=== PATIENT | male | born 1970 | race Caucasian/White ===

== ENCOUNTER → 2016-07-17 | Outpatient (CLI) | payer OTHER ==
[~2016-07-17] MED LIST: FLUO40CA8 PO; HYDR-5688 PO; LMC25 PO
[2016-07-17 12:17] LABS: BASO % 0.4 %; BASO ABS # 0.03 K/uL (0-0.2); COMPLETE YES; EOS % 4.3 %; HEMATOCRIT 43.6 % (42-52); IG% 0.1 %; LYMPH % 29.7 %; LYMPH ABS # 2.12 K/uL (1.2-3.4); MEAN CELL VOLUME 90.1 fL (80-100); MEAN CORPUSCULAR HEMOGLOBIN 30.8 pg (25-34); MEAN CORPUSCULAR HGB CONC 34.2 g/dl (32-36); MEAN PLATELET VOLUME 10.2 fL (7.4-10.4); MONO % 10.9 %; NEUT % 54.6 %; PLATELET COUNT 299 K/uL (130-400); RED BLOOD COUNT 4.84 M/uL (4.7-6.1); WHITE BLOOD COUNT 7.15 K/uL (4.8-10.8)
[2016-07-17 12:37] LABS: CALCIUM 9.2 mg/dl (8.5-10.1)
[2016-07-17 12:39] LABS: BLOOD UREA NITROGEN 11 mg/dl (7-18); BUN/CREATININE RATIO 10.4 (10-20); CARBON DIOXIDE 28 mmol/L (21-32); CHLORIDE 103 mmol/L (98-107); GLUCOSE 92 mg/dl (70-99); POTASSIUM 4.2 mmol/L (3.5-5.1); SODIUM 137 mmol/L (136-145)
== END | disposition home or self-care (01) ==
LOC: C.CPL 10:44
PROVIDERS: ATTEND Orthopaedic Surgery
DX: G56.03 Carpal tunnel syndrome, bilateral upper limbs (principal)

== ENCOUNTER → 2016-08-22 | Day surgery (SDC) | payer OTHER ==
[2016-08-12 08:54] VITALS: Ht 177.8 cm; Wt 120.5 kg
[~2016-08-22] VITALS: Ht 177.8 cm; Wt 120.5 kg
[~2016-08-22] MED LIST changes: +ATROPINE SULFATE 0.1 MG/ML 5ML SYR IV PRN; +CEFAZOLIN 3000 MG/65 ML D5W IV SCH; +EpHEDrine SULFATE INJ 50 MG/ML AMP IV PRN; +FENTANYL CITRATE INJ 50 MCG/1 ML 2 ML VIAL ONE; +HYDROCODONE/ACETAMOPHEN 5/325MG TAB PO PRN; +LACTATED RINGER'S 1000ML 1,000 ML IV SCH; +LIDOCAINE HCL 2% 2 ML VIAL (20MG/ML) ONE; +LIDOCAINE HCL 2% LOCAL 20 ML VIAL ONE; +MIDAZOLAM HCL 1 MG/ML 2ML VIAL ONE; +ONDANSETRON INJ 2 MG/ML 2 ML VIAL IV PRN; +ONDANSETRON INJ 2 MG/ML 2 ML VIAL ONE; +PROPOFOL IV EMULSION 10 MG/ML 20 ML VIAL IV ONE; +SODIUM CHLORIDE 0.9% 1000ML 1,000 ML IV SCH
--- NOTE | 2016-08-22 10:58 | History & Physical Bridge - [place] ---
H&P Re-Evaluation Bridge Note: I have examined the patient, reviewed the History & Physical and in the interval since the performance of the History & Physical I have noted the following changes of clinical significance: No changes noted
[2016-08-22 12:44] VITALS: TEMP 36.4
--- NOTE | 2016-08-22 12:49 | Discharge Instructions-SurgCtr ---
Discharge Instructions Date of Service Aug 22, 2016. Visit Reason for Visit: Left Carpal Tunnel Syndrome Discharge Discharge Diagnosis / Problem: SAME ABOVE Discharge Goals Goal(s): Decrease discomfort, Improve function Activity Recommendations Activity Limitations: as noted below Lifting Limitations: gradually increase as tolerated Exercise/Sports Limitations: gradually increase as tolerated Anesthesia . Post Anesthesia Instructions: If you have had General Anesthesia or IV Sedation: * Do not drive today. * Resume driving when surgeon permits. * Do not make important decisions or sign legal documents today. * Call surgeon for: 1. Temperature elevations greater than 101 degrees F. 2. Uncontrollable pain. 3. Excessive bleeding. 4. Persistent nausea and vomiting. 5. Medication intolerance (nausea, vomiting or rash). * For nausea and vomiting use only clear liquids such as: tea, soda, bouillon until nausea subsides, then gradually increase diet as tolerated. * If you have any concerns or questions, call your surgeon's office. If physician is unavailable and it is an emergency, call 911 or go to the nearest emergency room. . Instructions / Follow-Up Instructions / Follow-Up MEDICATIONS: * Resume previous medications unless instructed otherwise by your surgeon. * Always take pain medication on a full stomach or with food to avoid upset stomach. * Do not drink alcohol or drive while taking narcotics. * Ibuprofen or Tylenol may be taken if narcotic not needed. SPECIAL CARE INSTRUCTIONS: __ None _X_ Keep extremity elevated and iced x 48 hours; apply ice 20-30 minutes 8-10 times/day. May remove at night. __ Sling __24 hrs/day __ Remove at night __ Shoulder Immobilizer __ 24 hrs/day __ Remove at night _X_ Dressing __ Maintain until seen in office, may shower with plastic over site _X_ Remove dressings in 5 DAYS. MAY SHOWER SOONER IF COVERED WITH PLASTIC BAG. _X_ Cover incisions with band-aids after showering __ Do not remove steri-strips Call physician if chills or temperature rises above 102 degrees or pain unrelieved by prescribed pain medications at . . Diet Recommendations Home Diet: no limitations Fluid Restriction: None Procedures Procedures Performed: Left Carpal Tunnel Release Pending Studies Studies pending at discharge: no Work Instructions Return To Work: after follow-up Lifting Limitations: no more than 10 pounds Medical Emergencies . Who to Call and When: Medical Emergencies: If at any time you feel your situation is an emergency, please call 911 immediately. . Non-Emergent Contact Non-Emergency issues call your: Primary Care Provider Call Non-Emergent contact if: you have a fever, temperature is above 101.5 . . "Provider Documentation" section prepared by Gael Soto. .
[2016-08-22 13:06] VITALS: BP 107/70; PULSE 53; O2SAT 96
--- NOTE | 2016-08-22 13:14 | Anesthesia Progress Nt - [facility] ---
Anesthesia Post Op Note Date & Time Aug 22, 2016 at 13:14 Vital Signs Pain Intensity: 0 Vital Signs Past 12 Hours Date Time Temp Pulse Resp B/P (MAP) Pulse Ox O2 Delivery O2 Flow Rate FiO2 08/22/16 13:06 53 18 107/70 (82) 96 Room Air 08/22/16 12:44 36.4 59 18 116/75 (89) 96 Room Air 08/22/16 11:10 36.8 65 16 124/75 (91) 95 Room Air Notes Mental Status: alert / awake / arousable, participated in evaluation Pt Amnestic to Procedure: Yes Nausea / Vomiting: adequately controlled Pain: adequately controlled Airway Patency, RR, SpO2: stable & adequate BP & HR: stable & adequate Hydration State: stable & adequate Anesthetic Complications: no major complications apparent
--- NOTE | 2016-08-22 15:38 | [facility] Post Operative Brief Note ---
Immediate Operative Summary Operative Date Aug 22, 2016. Pre-Operative Diagnosis Left Carpal Tunnel Syndrome Post-Operative Diagnosis same Procedure(s) Performed Left Carpal Tunnel Release Surgeon Dr. Brent Boswell Internet Security Specialist Surgeon(s) Joseph Soto PA-C Estimated Blood Loss 5cc Findings as above Specimens none Complication(s) None Disposition Recovery Room / PACU
--- NOTE | 2016-09-03 15:39 | OPERATIVE REPORT ---
CHIEF COMPLAINT: Carpal tunnel syndrome of the left wrist. POSTOPERATIVE DIAGNOSIS: Same. PROCEDURE: Left carpal tunnel release. SURGEON: Dr. Oscar Boswell. COUTURE ALTERATIONS DRESSMAKER: Joseph Soto PA-C, whose assistance was necessary for positioning of the wrist and helping with retraction. ANESTHESIA: Local with sedation. COMPLICATIONS: None. CONDITION: Stable to PACU. INDICATIONS: Chin is a pleasant 46-year-old male who presented to my office with chronic numbness in his right hand. EMG and clinical examination were diagnostic for carpal tunnel syndrome of the left wrist. After failing conservative treatment, he elected to undergo an open left carpal tunnel release. On August 22, 2016, he arrived at [facility] for the above procedure. He was seen in the preoperative holding area and the operative extremity was identified and signed. He was given a preoperative antibiotic and taken back to the operating room and laid on the table in the supine position and put under basic sedation. The left wrist was then prepped and draped in sterile fashion. A time-out was done. The patient and the operative extremity was properly identified. The surgical site was then anesthetized with Lidocaine. A longitudinal incision was made directly over the transverse carpal ligament. Dissection was taken down through the palmar fascia and the transverse carpal ligament was exposed. Knife and tenotomy scissors were then used to transect the ligament. Complete resection was checked both proximally and distally. The wound was then irrigated, closed with 4-0 nylon suture in a mattress fashion. He was then placed in a soft dressing and taken to the postanesthesia care unit in stable condition. He tolerated the procedure well.
== END | disposition home or self-care (01) ==
LOC: X.SURG 09:27
PROVIDERS: ATTEND Orthopaedic Surgery
DX: G56.02 Carpal tunnel syndrome, left upper limb (principal)

== ENCOUNTER 2021-04-11 06:15 | Inpatient (IN) ==
--- NOTE | 2021-02-26 08:52 | PAT Medication Instructions ---
Medication Instructions Date of Service February 26, 2021 Home Medications citalopram 20 mg tablet 20 mg PO QAM omeprazole 20 mg capsule,delayed release 20 mg PO BID PRN Take morning of surgery With a small sip of water, OTHERWISE NOTHING TO EAT OR DRINK AFTER MIDNIGHT: citalopram 20 mg tablet 20 mg PO QAM omeprazole 20 mg capsule,delayed release 20 mg PO BID PRN (if needed) Take evening before surgery omeprazole 20 mg capsule,delayed release 20 mg PO BID PRN (if needed) Other Notes If you have any questions please call us at [phone] or [phone] or [phone] or [phone]
--- NOTE | 2021-03-07 09:40 | Anesthesiology Consultation ---
Date of Service March 07, 2021 Assessment & Plan (1) Encounter for pre-operative examination: Chart Review Chart Review: Acceptable Risk for Surgery (pending preop Covid testing results and surgeon ordered PCP clearance scheduled 03/08/21) and Patient seen in Pre Admission Testing Awaiting surgeon ordered PCP clearance 03/08/21 Per PAT appt on 03/07/21, patient denies any recent travel or large group activities. No known Covid positive exposures or Covid related symptoms. No known Covid infection in the past 90 days. Pt is vaccinated for Covid. Preop Covid testing scheduled 03/19/21= will await results. Educated on importance of self quarantining, social distancing and wearing mask in public for the patient one week prior to surgery and after Covid testing done Left knee arthroscopy/partial meniscectomy, chondroplasty 09/30/19= Done under [facility] with LMA #5, atraumatic. Teaching & Discussion Pre-Anesthesia Teaching/Discussion Notes: Instructed NPO after midnight before surgery,except medications with 15 cc of water. Medication instructions provided according to the PAT guidelines. History Surgery Operation Date: 03/21/21 12:25 Proposed Procedures p L4-S1 Decompression and Fusion, Spinal Cord Monitoring - Yousuf Cruz, Height/Weight Height: 5 ft 11 in Weight: 128 kg Allergies Allergy/AdvReac Type Severity Reaction Status Date / Time No Known Drug Allergies Allergy Unknown . Verified 02/22/21 16:37 Medications Home Medications Medication Instructions Recorded Confirmed Last Taken citalopram 20 mg tablet 20 mg PO QAM 12/13/20 02/22/21 Unknown omeprazole 20 mg capsule,delayed 20 mg PO BID PRN cap 12/13/20 02/22/21 Unknown release Past Medical History Medical History Anxiety Depression Gastric volvulus Hx 01/26/2021 -- required surgical intervention Tico Leija Pt has mild hiatal hernia- feel reason for volvulus Mood disorder Stable Osteoarthritis Exercise / Class Metabolic Activity II 4-5 Yardwork/Stairs/Walk up hill (one flight of stairs - no chest pain, minimal SOB due to back pain ) Past Family History Family History Mother Family history of reaction to anesthesia nausea/vomiting Family history of diabetes mellitus Past Surgical History Surgical History History of arthroscopy of left knee 09/30/2019: LMA#5 atraumatic. No issues per anesthesia postop progress note. History of bilateral carpal tunnel release History of cholecystectomy History of laparoscopy History of surgery laparoscopic gastropexy 01/26/2021 [facility]: Grade 2 view, MAC#3, ETT#7.5 2 attempts. History of surgical removal of pilonidal cyst Hx of vasectomy Past Anesthesia History No Hx of Anesthesia Complications and No Family Hx of Anesthesia Complications (with exception to mother - PONV ) History of PONV No Hx of PONV and No Hx of Motion Sickness Social History Smoking Status: Never smoker tobacco type: smokeless tobacco Do You Dip or Chew Tobacco: Yes (1 can every 2 days) Hx Alcohol Use: Yes Alcohol type: beer, wine and hard liquor alcohol intake frequency: a few times a month Hx Substance Use: No substance use type: does not use Review of Systems Hx of snoring- no witnessed apnea- hx of sleep study many years ago- no JOSE L per patient Patient denies chest pain, shortness of breath at rest, reflux, cough, wheezing, palpitations. No hx of seizures, stroke, SD. No hx of blood clots or blood transfusions Physical Exam Vital Signs VITALS BP 122/81 P 57 TEMP 97.9 SP02 98% RESP 16 Constitutional no acute distress ENMT Mouth: no TMJ clicking Thyromental Distance: < 3.5 Finger Breadths (3.0) Mallampati Class: II Neck + thick neck and + limited neck extension (minimal ) Respiratory normal respiratory effort; no respiratory distress Auscultation: lungs clear to auscultation bilaterally; no wheezes Cardiovascular Rate/Rhythm: regular rate and regular rhythm Heart Sounds: no murmur Vessels: no carotid bruit Musculoskeletal Spine: no pain with cervical ROM Extremities: extremities normal to inspection Psychiatric Orientation: alert Lab Results Anesthesia Preop Results Results Anesthesia Widget: WBC 6.21 K/uL (4.8-10.8) 03/07/21 Hgb 14.5 g/dL (14.0-18.0) 03/07/21 Hct 43.6 % (42-52) 03/07/21 Plt 296 K/uL (130-400) 03/07/21 Na 139 mmol/L (136-145) 03/07/21 K 4.1 mmol/L (3.5-5.1) 03/07/21 Cl 106 mmol/L (98-107) 03/07/21 CO2 27 mmol/L (21-32) 03/07/21 BUN 13 mg/dl (6-23) 03/07/21 Creat 0.95 mg/dl (0.6-1.4) 03/07/21 Glucose Level 90 mg/dl (70-99) 03/07/21 PT 10.3 Seconds (9.0-12.0) 03/07/21 PTT 26.8 Seconds (21.0-31.0) 03/07/21 INR 1.0 (0.9-1.1) 03/07/21 Urine Color Yellow 03/07/21 Urine Appearance Clear (Clear) 03/07/21 Urine pH 5.0 (4.5-7.5) 03/07/21 Urine Specific [place] 1.018 (1.000-1.030) 03/07/21 Urine Protein Negative (Negative) 03/07/21 Urine Glucose (UA) Negative (Negative) 03/07/21 Urine Ketones Negative (Negative) 03/07/21 Urine Blood Negative (Negative) 03/07/21 Urine Nitrite Negative (Negative) 03/07/21 Urine Bilirubin Negative (Negative) 03/07/21 Urine Urobilinogen Negative (Negative) 03/07/21 Urine Leukocyte Esterase Negative (Negative) 03/07/21 Blood Type A Positive 03/07/21 Antibody Screen NEGATIVE 03/07/21 Testing Electrocardiogram Date: 03/07/21 Findings: + SB @ (55bpm) Otherwise normal EKG per cardio Chest X-Ray Date: 03/07/21 Findings: + NAD
[~2021-04-11 06:15] MED LIST changes: +ACETAMINOPHEN 500 MG TAB PO SCH; -ATROPINE SULFATE 0.1 MG/ML 5ML SYR IV PRN; -CEFAZOLIN 3000 MG/65 ML D5W IV SCH; +CeleBREX 200 MG CAP PO SCH; -EpHEDrine SULFATE INJ 50 MG/ML AMP IV PRN; -FENTANYL CITRATE INJ 50 MCG/1 ML 2 ML VIAL ONE; -FLUO40CA8 PO; +GABAPENTIN 900 MG DOSE PO SCH; -HYDR-5688 PO; -HYDROCODONE/ACETAMOPHEN 5/325MG TAB PO PRN; -LACTATED RINGER'S 1000ML 1,000 ML IV SCH; -LIDOCAINE HCL 2% 2 ML VIAL (20MG/ML) ONE; -LIDOCAINE HCL 2% LOCAL 20 ML VIAL ONE; -LMC25 PO; +LR 15ML/HR IV SCH; -MIDAZOLAM HCL 1 MG/ML 2ML VIAL ONE; -ONDANSETRON INJ 2 MG/ML 2 ML VIAL IV PRN; -ONDANSETRON INJ 2 MG/ML 2 ML VIAL ONE; -PROPOFOL IV EMULSION 10 MG/ML 20 ML VIAL IV ONE; -SODIUM CHLORIDE 0.9% 1000ML 1,000 ML IV SCH
[2021-04-11] MEDS ORDERED: HYDROmorphone INJ 2 MG/ML SYR/VIAL IV PRN (06:53)
[2021-04-11] MEDS ORDERED: ATROPINE SULFATE 0.1 MG/ML 10ML SYR IV PRN (06:53)
[2021-04-11] MEDS ORDERED: fentaNYL citrate 100 MCG/2 ML VIAL IV PRN (06:53)
[2021-04-11] MEDS ORDERED: ONDANSETRON INJ 2 MG/ML 2 ML VIAL IV PRN ×2 (06:53→12:12)
[2021-04-11] MEDS ORDERED: ePHEDrine sulfate 50 MG/ML AMP IV PRN (06:53)
[2021-04-11] MEDS ORDERED: fentaNYL citrate 100 MCG/2 ML VIAL ONE (06:55)
[2021-04-11] MEDS ORDERED: HYDROmorphone INJ 2 MG/ML SYR/VIAL ONE (06:56)
[2021-04-11] MEDS ORDERED: MIDAZOLAM HCL 1 MG/ML 2ML VIAL ONE (06:56)
[2021-04-11] MEDS ORDERED: ceFAZolin 330 MG/ML 1 GM VIAL ONE (06:58)
[2021-04-11] MEDS ORDERED: BUPIVACAINE/EPINEPHRINE 0.25% 1:200,000 30 ML VIAL ONE (06:58)
--- NOTE | 2021-04-11 07:36 | History & Physical Bridge Note ---
Date of Service April 11, 2021 History & Physical Bridge Note I have examined the patient, reviewed the History & Physical and in the interval since the performance of the History & Physical I have noted the following changes of clinical significance: no changes noted
--- NOTE | 2021-04-11 07:37 | History & Physical Report ---
Date of Service April 11, 2021 Assessment & Plan (1) Lumbar radiculopathy: Plan: L4-S1 decompression fusion History of Present Illness Chief Complaint: Back and leg pain Primary Care Provider: Blane Gilmore PA-C This is a 50-year-old male presents with chronic persistent back and leg pain after failing course of nonoperative care is here for surgical invention. Allergies Allergy/AdvReac Type Severity Reaction Status Date / Time No Known Drug Allergies Allergy Unknown Unknown Verified 04/11/21 06:57 Home Medications Medication Instructions Recorded Confirmed Type citalopram 20 mg tablet (Celexa) 20 mg PO QAM 12/13/20 04/11/21 History Past Med/Surg History Medical History Anxiety Depression Dyslipidemia Diet controlled per records Gastric volvulus Hx 01/26/2021 -- required surgical intervention SAMAN Leija Pt has mild hiatal hernia- feel reason for volvulus Mood disorder Stable Osteoarthritis Surgical History History of arthroscopy of left knee 09/30/2019: LMA#5 atraumatic. No issues per anesthesia postop progress note. History of bilateral carpal tunnel release History of cholecystectomy History of laparoscopy History of surgery laparoscopic gastropexy 01/26/2021 [facility]: Grade 2 view, MAC#3, ETT#7.5 2 attempts. History of surgical removal of pilonidal cyst Hx of vasectomy Family History Mother Family history of reaction to anesthesia nausea/vomiting Family history of diabetes mellitus Social History Smoking Status: Never smoker Second Hand Exposure: No; Do You Dip or Chew Tobacco: Yes (1 can every 2 days); Tobacco Cessation Education Requested by Patient: No Hx Alcohol Use: Yes Alcohol type: beer, wine and hard liquor Hx Substance Use: No Preferred Language: [place] Communication Ability: Effective Machine Clerical Verifier Required: No Beliefs That Will Affect Care: None Current Living Situation: Spouse and Family Current Living Situation Comment: Lives with and 2 kids Feels Safe at Home: Yes Safety Concerns: Feels Safe At This Time Assistive Devices: Cane and Glasses Assistive Devices Comment: cane prn Physical Exam Physical Exam: Patient is alert and oriented Heart regular rate and rhythm Lungs clear Results & Data ([facility]) Vital Signs (Past 12 Hours) Vital Signs Temp Pulse Resp BP Pulse Ox 04/11/21 06:36 36.6 C 67 18 121/74 96
[2021-04-11] MEDS ORDERED: DEXAMETHASONE SOD INJ 4 MG/ML VIAL ONE (08:29)
[2021-04-11] MEDS ORDERED: ePHEDrine sulfate 50 MG/ML SYR ONE (08:29)
[2021-04-11] MEDS ORDERED: LARYING-O-JET KIT (LTA) ONE (08:29)
[2021-04-11] MEDS ORDERED: LIDOCAINE 2% 2 ML VIAL/AMP(20MG/ML) INFIL ONE (08:29)
[2021-04-11] MEDS ORDERED: PROPOFOL IV EMULSION 10 MG/ML 20 ML VIAL IV ONE (08:29)
[2021-04-11] MEDS ORDERED: PHENYLEPHRINE HCL 10 MG/ML VIAL ONE (08:29)
[2021-04-11] MEDS ORDERED: ROCURONIUM BROMIDE 10 MG/ML 5 ML VIAL IV ONE (08:29)
[2021-04-11] MEDS ORDERED: ONDANSETRON INJ 2 MG/ML 2 ML VIAL ONE (08:29)
[2021-04-11] MEDS ORDERED: GLYCOPYRROLATE 0.2 MG/ML VIAL ONE (08:29)
[2021-04-11] MEDS ORDERED: NEOSTIGMINE METHYLSULFATE 1 MG/ML 10ML VIAL ONE (08:29)
[2021-04-11] MEDS ORDERED: FLOSEAL HEMOSTATIC MATRIX 10ML TOP ONE (08:36)
[2021-04-11] MEDS ORDERED: SUGAMMADEX SODIUM 200 MG/2 ML VIAL IV ONE (09:27)
--- NOTE | 2021-04-11 09:53 | Operative Report ---
Post Operative Report Pre & Post Diagnosis Operation Date: 04/11/21 07:45 Pre-Op Diagnosis: Spinal stenosis with spondylolisthesis and neurogenic claudication Morbid obesity Post-Op Diagnosis: Same I identified the patient and participated in the time-out.: Yes Procedure Operation Date: 04/11/21 07:45 Actual Procedures #1 lumbar decompression with bilateral medial facetectomies and foraminotomies L3-L4, L4-5 and L5-S1. #2 posterior spinal fusion L4-L5 L5-S1. #3 placement posterior instrumentation L4-L5 L5-S1. #4 interbody fusion L5-S1. #5 placement of titanium cage 12 x 26 mm at L5-S1. #6 placement locally harvested morselized autograft in the posterior gutters. #7 placement of I factor combined with V toss in the interbody space and posterior lateral gutters. Surgeon Yousuf Cruz, DO Lard Refiner Crystal Lowry Estimated Blood Loss 400 Findings See Below The patient is 5 foot 11 inches tall weighing over 128 kg with a BMI in excess of 39. The patient's body habitus did contribute to significant technical difficulty requiring her deepest retractors longus instruments in order to perform his procedure. This had at least 50% increased operative time. Specimens None Indications This is a 50-year-old male who presents above-mentioned diagnosis after failing extensive course of nonoperative care is here for the above-mentioned procedure. Description of Procedure Patient met with identified informed consent obtained. Patient was then taken to the operative suite underwent a patient placed in a prone position on the [place] table top [place] frame. All bony prominences well-padded eyes inspected to ensure no external pressure placed upon the. This point lumbar spine was prepped and draped in the normal sterile fashion. Sharp dissection with the assistance of Bovie cautery was performed down to and exposing the lamina and t ransverse processes of L4-L5 and the sacral ala bilaterally. Obvious bilateral pars defect noted. A complete laminectomy of L5 L4 partial laminectomy L3 was performed including bilateral medial facetectomies and foraminotomies addressing severe spinal stenosis. Pedicle screws were then placed in L4-5 and S1 levels bilaterally with assistance of fluoroscopy and appropriate sized nick placed. By way of a transforaminal approach on the left complete discectomy of L5-S1 was performed endplates curetted to subcortically bone and a 12 x 26 mm titanium cage filled with Vitoss tapped in position. The rods were then locked into final position bilaterally. Transverse processes of L for L5 and sacral ala burred to subcortical bleeding bone. V toss combined with I factor and locally harvested morselized autograft was then placed in the posterior lateral gutters. 15 round JACOB drain inserted. The incision was then closed with 1 Vicryl to fascia 2-0 Vicryl subcutaneously and 4 Monocryl for final skin closure. Steri- Strip Steri-Strips placed. Patient will continue PACU stable condition. Please note spinal cord monitoring was last that the procedure no changes noted. Lastly Crystal Lowry was present at the entire surgeon while the patient positioning complex portions of the surgery and final skin closure. I attest to the content of the Intraoperative Record and any orders documented therein. Any exceptions are noted below.
--- NOTE | 2021-04-11 10:19 | Fluoroscopy Report ---
INTRAOPERATIVE RADIOGRAPHS CLINICAL HISTORY: L4-S1 spinal fusion. Fluoroscopy time: 29 seconds. FINDINGS: 2 spot fluoroscopic views of the lumbar spine are presented. There has been discectomy at L 5-S1 with laminectomy and posterior fusion at L4-S1. Interpedicular screws are present at all levels. The orthopedic hardware appears intact. IMPRESSION: Intraoperative images from lumbar spinal fusion surgery as above. Electronically signed by: Gian Denise M.D. 04/11/2021 10:17 AM
[2021-04-11] MEDS ORDERED: FAMOTIDINE 20 MG TAB PO PRN (12:12)
[2021-04-11] MEDS ORDERED: SOD PHOSPHATE/SOD BIPHOSPHATE ENEMA 132 ML BTL PR PRN (12:12)
[2021-04-11] MEDS ORDERED: diphenhydrAMINE Capsule 25 MG CAP PO PRN (12:12)
[2021-04-11] MEDS ORDERED: LORazepam 0.5 MG/1 ML VIAL IV PRN (12:12)
[2021-04-11] MEDS ORDERED: HYDROmorphone INJ 0.5 MG/0.5 ML SYR IV PRN (12:12)
[2021-04-11] MEDS ORDERED: LORazepam 0.5 MG TAB PO PRN (12:12)
[2021-04-11] MEDS ORDERED: traMADol HCL 50 MG TABLET PO PRN (12:12)
[2021-04-11] MEDS ORDERED: DO NOT ADMINISTER PNEUMOCOCCAL VACCINE PRN (12:12)
[2021-04-11] MEDS ORDERED: MAGNESIUM HYDROXIDE SUSP 30 ML UDC PO PRN (12:12)
[2021-04-11] MEDS ORDERED: HYDROmorphone INJ 1 MG/ML SYRINGE IV PRN (12:12)
[2021-04-11] MEDS ORDERED: bisacodyL 10 MG SUPP PR PRN (12:12)
[2021-04-11] MEDS ORDERED: NALOXONE HCL 0.4 MG/1 ML VIAL/CARP IV PRN (12:12)
[2021-04-11] MEDS ORDERED: METOCLOPRAMIDE HCL INJ 5 MG/ML 2 ML VIAL IV PRN (12:12)
[2021-04-11] MEDS ORDERED: DO NOT ADMINISTER FLU VACCINE PRN (12:12)
[2021-04-11] MEDS ORDERED: hydrOXYzine HCl 25 MG TAB PO PRN (12:12)
[2021-04-11] MEDS ORDERED: ACETAMINOPHEN 1,000 MG/100 ML VIAL IV PRN (12:12)
[2021-04-11] MEDS ORDERED: ALUMINUM/MAGNESIUM SUSP 30 ML UDC PO PRN (12:12)
[2021-04-11] MEDS ORDERED: PROMETHAZINE HCL 12.5 MG in SODIUM CHLORIDE 0.9% 50 ML IV PRN (12:12)
[2021-04-11] MEDS ORDERED: ONDANSETRON 4 MG OD TAB PO PRN (12:12)
[2021-04-11] MEDS ORDERED: ACETAMINOPHEN 500 MG TAB PO PRN (12:12)
[2021-04-11] MEDS: LACTATED RINGER'S 1,000 ML IV SCH ×2 (12:50→20:08)
--- NOTE | 2021-04-11 13:08 | Hospitalist Consultation ---
Date of Consultation April 11, 2021 Assessment & Plan (1) Lumbar radiculopathy: (2) Lumbar disc herniation: - s/p L4-S1 Decompression and Fusion - Pain management, bowel regimen and DVT ppx per the primary team - PT/OT consults - Follow am CBC to monitor for acute blood loss - Diet and exercise regimen discussed with patient at bedside encouraging something like yoga, meal planning/food diary (3) Dyslipidemia: - diet controlled (4) Depression: (5) Anxiety: - Continue Celexa, allow Ativan as needed (6) Chewing tobacco nicotine dependence: -Chewing tobacco cessation encouraged. (7) Obesity (BMI 35.0-39.9 without comorbidity): - BMI of 39.5 - Diet and exercise encouraged (8) Osteoarthritis: - Stable, encourage physical therapy DVT ppx: - teds, scds CODE: full Dispo: From home, likely dc to home Supervising Physician Co-Signing Physician Notes Patient is a 50-year-old male with history of mood disorder, dyslipidemia, tobacco use and other medical problems was consulted for postop medical management. Patient underwent lumbar decompression, fusion surgery by Dr. Cruz for spinal stenosis with neurogenic claudication. Patient is doing well postoperatively. He denies any chest pain, shortness of breath, dizziness, nausea, abdominal pain. On exam patient is obese, no apparent distress, normocephalic atraumatic, EOMI, normal breath sounds, clear to auscultation, S1- S2, no murmur, no pedal edema, abdomen soft, nontender, normal bowel sounds, back: Surgical site in dressing,+ drain, alert, awake, oriented, grossly no focal deficits. Lumbar spinal stenosis with neurogenic claudication, spondylolisthesis s/p lumbar decompression fusion surgery by Dr. Cruz POD#0. Pain control, wound care, PT OT, DVT prophylaxis as per primary team. Monitor for postop anemia. Incentive spirometry. Bowel regimen to prevent constipation. Continue Celexa for mood disorder. Counseled to quit tobacco use. I personally reviewed the record. Patient is interviewed and examined at bedside. Patient's care is coordinated with Imelda Clinton PA-C. Please refer to the documentation above for details of patient's presentation and for discussion of other issues. History of Present Illness Reason for Consultation: Medical management Requesting Physician: Dr. Cruz Attending Physician: Yousuf Cruz, DO History of Present Illness This is a 50-year-old male with PMHx of osteoarthritis, mood disorder, anxiety, depression and history of gastric volvulus in January 2021 requiring surgical intervention in [facility] from mild hiatal hernia. Patient notes ongoing back complaints since last September. He underwent several therapy sessions, used oral NSAIDs and was seen by pain management clinic for intraspinal injections. He developed pain with standing for any prolonged period of time with numbness and tingling going down into the backs of his legs, in the low left more so than right. He reports gaining approximately 30 pounds since September 2020 due to inactivity. We discussed weight loss, yoga as part of exercise regimen, and diet modification at bedside and he is agreeable. Patient denies any alcohol use, admits to chewing tobacco, chews 1 can in 2-3 days. Denies need for nicotine patch He presented today for elective L4-S1 decompression fusion by Dr. Cruz and is doing well postoperatively. Patient has a lunch tray with clear liquids at bedside full liquid diet at bedside. He is tolerating water without any difficulty. Last bowel movement was yesterday, Porter catheter in place. Allergies Allergy/AdvReac Type Severity Reaction Status Date / Time No Known Drug Allergies Allergy Unknown Unknown Verified 04/11/21 06:57 Home Medications Medication Instructions Recorded Confirmed Type citalopram 20 mg tablet (Celexa) 20 mg PO QAM 12/13/20 04/11/21 History Patient History Medical History (Updated 04/11/21 @ 13:43 by Imelda Clinton PA-C) Anxiety Depression Dyslipidemia Diet controlled per records Gastric volvulus Hx 01/26/2021 -- required surgical intervention [facility] Pt has mild hiatal hernia- feel reason for volvulus Mood disorder Stable Osteoarthritis Surgical History History of arthroscopy of left knee 09/30/2019: LMA#5 atraumatic. No issues per anesthesia postop progress note. History of bilateral carpal tunnel release History of cholecystectomy History of laparoscopy History of surgery laparoscopic gastropexy 01/26/2021 [facility]: Grade 2 view, MAC#3, ETT#7.5 2 attempts. History of surgical removal of pilonidal cyst Hx of vasectomy Family History Mother Family history of reaction to anesthesia nausea/vomiting Family history of diabetes mellitus Social History Smoking Status: Never smoker Second Hand Exposure: No; Do You Dip or Chew Tobacco: Yes (1 can every 2 days); Tobacco Cessation Education Requested by Patient: No Hx Alcohol Use: Yes Alcohol type: beer, wine and hard liquor Hx Substance Use: No Preferred Language: Zambian Communication Ability: Effective Treatment Supervisor Required: No Beliefs That Will Affect Care: None Current Living Situation: Spouse and Family Current Living Situation Comment: Lives with and 2 kids Feels Safe at Home: Yes Safety Concerns: Feels Safe At This Time Assistive Devices: Cane and Glasses Assistive Devices Comment: cane prn Review of Systems Review of Systems: Constitutional: No fever, sweats or chills Eyes: No diplopia, no worsening or blurred vision ENT: normal hearing, no trouble swallowing Respiratory: No cough, sputum, dyspnea at rest or on exertion Cardiovascular: No chest pain, tightness or palpitations Abdomen: No pain, nausea, vomiting, diarrhea or constipation Musculoskeletal: No joint pain, calf pain, swelling Neurologic: As per HPI, currently no weakness, numbness/tingling, or balance problems Psychiatric: No anxiety or depression Skin: No rash or itch Physical Exam Physical Exam: General: awake, alert, no apparent distress, obese with BMI of 39.5 Head: Normocephalic, atraumatic ENT: PERRL, EOMI, no pharyngeal exudate, mucous membranes moist Chest: Clear to auscultation, on room air, no adventitious breath sounds Cardiac: Regular rate and rhythm, no murmur, no JVD, normal peripheral pulses, good capillary refill Back: Dressing C/D/I, JACOB drain in place draining serosanguineous bloody fluid Abdominal: NABS x 4 quadrants, soft, nondistended, nontender to palpation, no rebound or guarding : Porter catheter in place draining clear yellow urine Extremities: Normal inspection, no peripheral edema or erythema, calfs nontender to palpation Psych: Normal mood and affect Neuro: AAO x 3, strength intact bilaterally and rated 5/5, no motor deficits, speech is clear, no peripheral sensory deficits Results & Data Results & Data ([facility]) Vital Signs (Past 12 Hours) Vital Signs Temp Pulse Pulse Resp BP BP Pulse Ox 04/11/21 12:58 36.6 C 77 16 89/63 L 96 04/11/21 12:24 36.6 C 78 16 105/72 96 04/11/21 11:40 79 20 103/74 96 04/11/21 11:30 79 12 108/77 95 04/11/21 11:20 75 12 105/80 97 04/11/21 11:10 36.8 C 78 16 112/75 94 04/11/21 11:00 79 18 119/71 95 04/11/21 10:50 36.4 C L 82 12 102/71 97 04/11/21 10:40 86 13 119/72 95 04/11/21 10:30 81 12 127/81 98 04/11/21 10:20 80 16 134/80 100 04/11/21 10:11 36.0 C L 89 16 124/76 98 04/11/21 06:36 36.6 C 67 18 121/74 96
--- NOTE | 2021-04-11 14:21 | Anesthesiology Progress Note ---
Date of Service April 11, 2021 Anesthesia Post Procedure Vital Signs Vital Signs: Temp Pulse Pulse Resp BP BP Pulse Ox 04/11/21 13:34 36.5 C 78 16 109/67 96 04/11/21 12:58 36.6 C 77 16 124/75 96 04/11/21 12:24 36.6 C 78 16 105/72 96 04/11/21 11:55 36.8 C 82 16 108/71 96 04/11/21 11:40 79 20 103/74 96 04/11/21 11:30 79 12 108/77 95 04/11/21 11:20 75 12 105/80 97 04/11/21 11:10 36.8 C 78 16 112/75 94 04/11/21 11:00 79 18 119/71 95 04/11/21 10:50 36.4 C L 82 12 102/71 97 04/11/21 10:40 86 13 119/72 95 04/11/21 10:30 81 12 127/81 98 04/11/21 10:20 80 16 134/80 100 04/11/21 10:11 36.0 C L 89 16 124/76 98 04/11/21 06:36 36.6 C 67 18 121/74 96 Pain Intensity Back: Pain Intensity: 4 Transfer of Care Handoff Completed per policy Notes Mental Status: alert / awake / arousable and participated in evaluation Patient Amnestic to Procedure: Yes Nausea / Vomiting: adequately controlled Pain: adequately controlled Airway Patency, RR, SpO2: stable & adequate BP & HR: stable & adequate Hydration State: stable & adequate Anesthetic Complications: no major complications apparent and Pt Satisfied with anesthetic care
[2021-04-11] MEDS: ceFAZolin 2000MG 2,000 MG/15 ML SYR IV SCH (16:15)
[2021-04-11] MEDS: DOCUSATE SODIUM/SENNA 50/8.6MG TAB PO SCH (21:24)
[2021-04-12] MEDS: ceFAZolin 2000MG 2,000 MG/15 ML SYR IV SCH (01:51)
[2021-04-12] MEDS: POLYETHYLENE (MIRALAX) 17 GM PACK PO SCH ×4 (05:04→23:13)
[2021-04-12 08:06] LABS: Basophils # (auto) 0.01 K/uL (0-0.2); Basophils % (auto) 0.1 %; Eosinophils # (auto) 0.01 K/uL (0-0.5); Eosinophils % (auto) 0.1 %; Hematocrit (blood only) 37.5 % (42-52); Hemoglobin 12.2 g/dL (14.0-18.0); Immature Granulocytes # (auto) 0.03 K/uL (0.00-0.02); Immature Granulocytes % (auto) 0.2 %; Lymphocytes # (auto) 1.73 K/uL (1.2-3.4); Lymphocytes % (auto) 13.6 %; Mean Corpuscular Hgb Conc 32.5 g/dL (32-36); Mean Corpuscular Volume 92.1 fL (80-100); Mean Platelet Volume 10.4 fL (7.4-10.4); Monocytes # (auto) 1.52 K/uL (0.11-0.59); Neutrophils # (auto) 9.41 K/uL (1.4-6.5); Platelet Count 267 K/uL (130-400); RDW Coefficient of Variation 13.5 % (11.5-14.5); RDW Standard Deviation 45.5 fL (36.4-46.3); Red Blood Count 4.07 M/uL (4.7-6.1); White Blood Count 12.71 K/uL (4.8-10.8)
[2021-04-12 08:35] LABS: BUN Creatinine Ratio 14.4 (10-20); Calcium 8.6 mg/dl (8.5-10.1); Creatinine Clr Calc Pharmacy 125.8 ml/min; Est GFR (African American) 105.8 ml/min; Est GFR (Non-African American) 91.3 ml/min; Potassium 3.7 mmol/L (3.5-5.1)
[2021-04-12] MEDS: CITALOPRAM 20 MG TAB PO SCH (08:41)
[2021-04-12] MEDS: oxyCODONE HCL IR 5 MG TAB (IMMEDIATE RELEASE) PO PRN (08:46)
--- NOTE | 2021-04-12 11:14 | Orthopedic Progress Note ---
Date of Service April 12, 2021 Assessment & Plan (1) Lumbar radiculopathy: Plan: This time continue physical therapy monitor his JACOB operatively discharge home in the next few days. Admission and Anticipated Discharge Date Admission Date: April 11, 2021 Subjective Patient's back pain is controlled leg pain markedly improved. Still has some left leg numbness. Physical Exam Physical Exam: Patient is in the chair at the bedside. Appears comfortable. Is good strength testing. Results & Data ([facility]) Vital Signs (Past 12 Hours) Vital Signs Temp Pulse Resp BP Pulse Ox 04/12/21 10:57 36.4 C L 74 16 135/68 95 04/12/21 07:59 36.6 C 73 18 105/61 95 04/12/21 04:00 36.7 C 72 18 102/66 96 04/12/21 00:00 36.8 C 69 18 124/69 95
[2021-04-12] MEDS: dexAMETHasone 8 MG in SYRINGE 0 ML IV SCH (12:03)
--- NOTE | 2021-04-12 12:16 | Hospitalist Progress Note ---
Date of Service April 12, 2021 Assessment & Plan (1) Lumbar radiculopathy: (2) Lumbar disc herniation: Plan: POD #1 s/p L4-S1 Decompression and Fusion by Dr. Cruz Per ortho for pain control, wound care, anticoagulation and activities Monitor Hgb (12.2, pre-op hgb 14.5), continue incentive spirometry, PT/OT when appropriate (3) Dyslipidemia: Plan: Diet controlled (4) Depression: (5) Anxiety: Plan: Continue Celexa, Ativan as needed (6) Chewing tobacco nicotine dependence: Plan: Chewing tobacco cessation encouraged (7) Obesity (BMI 35.0-39.9 without comorbidity): Plan: BMI of 39.5. Diet and exercise encouraged (8) Osteoarthritis: Plan: Stable, encourage physical therapy DVT ppx: Teds, scds Dispo: per primary service Admission and Anticipated Discharge Date Admission Date: April 11, 2021 Supervising Physician Co-Signing Physician Notes 50-year-old male with PMHx of osteoarthritis, mood disorder, anxiety, depression and history of gastric volvulus in January 2021 requiring surgical intervention in [facility] from mild hiatal hernia who had L4-S1 decompression and fusion for lumbar disch herniation and radiculopathy POD#1 Patient seen and examined. Reports some discomfort at the operation site with le lower extremity numbness. Physical exam notable for clean dressing over surgical site with drain in situ. Monitor hemoglobin. PT/OT evaluation Agree with other plans as detailed by Taylor Hayes PA-C Subjective Seen and examined in 357-2. Minimal surgical site discomfort but still with LLE numbness. No F/C, CP, SOB, N/V, abdominal pain. Porter catheter removed and patient urinating without issue. Passing flatus, no post-op bowel movement. Review of Systems Review of Systems: At least ten systems reviewed and negative except as noted in the HPI. Physical Exam Physical Exam: Gen: WD/WN, NAD, lying in bed, A&Ox3 HEENT: Normocephalic, atraumatic, conjunctivae moist, sclerae anicteric, mucous membranes moist Lung: Clear to Auscultation bilaterally, no wheezes/rales/rhonchi Heart: Regular rate, regular rhythm, no murmurs, rubs, or gallops Abdomen: Soft, NT, ND +BS x 4 Extremities: Spinal dressing c/d/i. JACOB drain visualized. No edema Skin: Warm, no rash Results & Data Results & Data ([facility]) Vital Signs (Past 12 Hours) Vital Signs Temp Pulse Resp BP Pulse Ox 04/12/21 10:57 36.4 C L 74 16 135/68 95 04/12/21 07:59 36.6 C 73 18 105/61 95 04/12/21 04:00 36.7 C 72 18 102/66 96 Laboratory Results Short CBC 04/12/21 Range/Units 07:31 WBC 12.71 H (4.8-10.8) K/uL Hgb 12.2 L (14.0-18.0) g/dL Hct 37.5 L (42-52) % Plt Count 267 (130-400) K/uL BMP 04/12/21 07:31 Sodium 137 Potassium 3.7 Chloride 104 Carbon Dioxide 26 BUN 14 Creatinine 0.97 Glucose 125 H Calcium 8.6 Diagnostic Findings Lumbar Spine X-Ray 04/11/21 07:45 INTRAOPERATIVE RADIOGRAPHS CLINICAL HISTORY: L4-S1 spinal fusion. Fluoroscopy time: 29 seconds. FINDINGS: 2 spot fluoroscopic views of the lumbar spine are presented. There has been discectomy at L5-S1 with laminectomy and posterior fusion at L4-S1. Interpedicular screws are present at all levels. The orthopedic hardware appears intact. IMPRESSION: Intraoperative images from lumbar spinal fusion surgery as above. Electronically signed by: Gian Denise M.D. 04/11/2021 10:17 AM
[2021-04-12] MEDS: DOCUSATE SODIUM/SENNA 50/8.6MG TAB PO SCH (20:08)
[2021-04-13] MEDS: POLYETHYLENE (MIRALAX) 17 GM PACK PO SCH ×3 (05:16→17:58)
[2021-04-13 07:32] LABS: Hematocrit (blood only) 35.3 % (42-52); Hemoglobin 11.7 g/dL (14.0-18.0); Mean Corpuscular Hemoglobin 30.6 pg (25-34); Mean Corpuscular Hgb Conc 33.1 g/dL (32-36); Mean Corpuscular Volume 92.4 fL (80-100); Mean Platelet Volume 10.5 fL (7.4-10.4); Platelet Count 255 K/uL (130-400); RDW Coefficient of Variation 13.7 % (11.5-14.5); RDW Standard Deviation 46.3 fL (36.4-46.3); Red Blood Count 3.82 M/uL (4.7-6.1); White Blood Count 11.59 K/uL (4.8-10.8)
[2021-04-13 07:55] LABS: BUN Creatinine Ratio 17.6 (10-20); Calcium 8.8 mg/dl (8.5-10.1); Creatinine Clr Calc Pharmacy 143.6 ml/min; Est GFR (African American) 118.6 ml/min; Est GFR (Non-African American) 102.3 ml/min; Potassium 3.7 mmol/L (3.5-5.1)
[2021-04-13] MEDS: dexAMETHasone 8 MG in SYRINGE 0 ML IV SCH (08:03)
[2021-04-13] MEDS: CITALOPRAM 20 MG TAB PO SCH (08:03)
[2021-04-13] MEDS: oxyCODONE HCL IR 5 MG TAB (IMMEDIATE RELEASE) PO PRN (09:42)
--- NOTE | 2021-04-13 15:13 | Hospitalist Progress Note ---
Date of Service April 13, 2021 Assessment & Plan (1) Lumbar radiculopathy: (2) Lumbar disc herniation: Plan: POD #2 s/p L4-S1 Decompression and Fusion by Dr. Cruz Monitor Hgb 12.2 (pre-op hgb 14.5), Hb is 11.7 today. Likely anemia from blood loss from surgery plus dilutional Continue PT/OT Pain control (3) Dyslipidemia: Plan: Diet controlled (4) Depression: (5) Anxiety: Plan: Continue Celexa, Ativan as needed (6) Chewing tobacco nicotine dependence: Plan: Chewing tobacco cessation encouraged (7) Osteoarthritis: (8) Obesity (BMI 35.0-39.9 without comorbidity): Plan: BMI of 39.5. Counselled on lifestyle modification Admission and Anticipated Discharge Date Admission Date: April 11, 2021 Subjective Patient seen and examined. Reports pain at surgical site is well controlled. Reports he has been walking around with physical therapy Reports improvement left leg numbness. Denies any fevers, chills, nausea, vomiting, abdominal pain Yet to move his bowel but passing flatus Denies dysuria, frequency or urgency Physical Exam Constitutional: + well hydrated and + obese; no acute distress Eyes: PERRL, conjunctivae normal, anicteric sclerae ENMT: external ear and nose normal, oropharynx normal Respiratory: normal respiratory effort, lungs clear to auscultation Cardiovascular: Rate/Rhythm: regular rate and regular rhythm S1 S2 Gastrointestinal (Abdomen): normal bowel sounds, soft, nontender, no hepatosplenomegaly Musculoskeletal: Clean dressing over lower back surgical site with drain in situ Neurologic: PERRL, EOMI, accommodation nl, no face palsy, no dysarthria Psychiatric: A+Ox3, euthymic affect Results & Data Results & Data ([facility]) Vital Signs (Past 12 Hours) Vital Signs Temp Pulse Resp BP Pulse Ox 04/13/21 09:01 36.5 C 76 16 116/70 97 04/13/21 03:55 36.7 C 65 18 114/68 97 Laboratory Results Abnormal lab results 04/13/21 04/13/21 Range/Units 06:39 06:39 WBC 11.59 H (4.8-10.8) K/uL RBC 3.82 L (4.7-6.1) M/uL Hgb 11.7 L (14.0-18.0) g/dL Hct 35.3 L (42-52) % MPV 10.5 H (7.4-10.4) fL Glucose 126 H (70-99(Fasting)) mg/dl
[2021-04-13] MEDS: DOCUSATE SODIUM/SENNA 50/8.6MG TAB PO SCH (20:19)
[2021-04-14] MEDS: dexAMETHasone 8 MG in SYRINGE 0 ML IV SCH (08:05)
[2021-04-14] MEDS: CITALOPRAM 20 MG TAB PO SCH (08:05)
--- NOTE | 2021-04-14 08:07 | Discharge Summary ---
Date of Service April 14, 2021 Admission HPI Per Admitting Provider This is a 50-year-old male presents with chronic persistent back and leg pain after failing course of nonoperative care is here for surgical invention. Discharge Data Consultations 04/11/21 12:12 Consult Hospitalist Routine Procedures Performed Operation Date: 04/11/21 07:45 Actual Procedures p L4-S1 Decompression and Fusion, Spinal Cord Monitoring(Not Applicable) - Yousuf Cruz DO Hospital Course (1) Lumbar radiculopathy: Patient is a pleasant 50-year-old individual who has history physical examination radiographic images consistent with the above-mentioned diagnosis. For this reason is brought to the operating room on 04/11/2021 and undergone a lumbar decompression and fusion from L4 to the sacrum. He left the operating with JACOB drain and Porter in place was transferred to PACU in stable condition. Is then transferred to the orthopedic floor. He was placed on GI and DVT prophylaxis. He has done well throughout his hospital course. His dressing is appearing clean dry intact his JACOB drain has remained intact his calves have remained supple nontender. On postoperative day #3 he was deemed safe for home discharge. We are going to maintain his JACOB drain on discharge. He will be seen in the office on Friday for removal. His discharge instructions were reviewed in detail and he is going to see us on Friday for drain removal. He is to call and be seen sooner if he develops any increased fever pain or drainage.
== END 2021-04-14 12:35 | disposition home or self-care (01) | DRG 460 ==
LOC: ASU 06:15 → 3W 09:56